=== PATIENT | female | born 1935 | race Caucasian/White ===

== ENCOUNTER 2024-10-13 13:03 | Emergency (ER) | payer MEDICARE, SELFPAY ==
[2024-10-13 13:06] VITALS: BP 177/85
--- NOTE | 2024-10-13 13:34 | ED.CVA ---
History of Present Illness
<Lucio Jaimes MD, Resident - Last Filed: 10/13/24 16:25>
General
Chief Complaint: CVA/TIA Symptoms
Source: patient and family
Time Seen by Provider: 10/13/24 13:18
Onset of Stroke Symptoms
Onset of symptoms known: Yes
Date of onset of symptoms: 10/13/24
Time of onset of symptoms: 12:00
Time pt last seen normal is known: Yes
Date last time pt seen normal: 10/13/24
Time last time pt seen normal: 11:55
History of Present Illness
History of Present Illness:
88 year old female comes to the ED today with slowing/slurring of speech and dragging of feet that her family noticed earlier this morning around 1.5 hours ago. Patient is here with her daughter who saw these changes in the patient this morning.
These symptoms have since resolved and patient does not have any sensory/motor deficits at this time. She states that she has had increased urinary frequency so went to an ED while in [place] on 10/09. She was told that she did not have a UTI
and was prescribed oxybutynin which she took one pill last night and this morning at 10am. Her symptoms resolved fairly quickly and she has not had any motor or sensory deficiencies.
Past History
<Lucio Jaimes MD, Resident - Last Filed: 10/13/24 16:25>
Past History
ED Past Medical History: Other and Other (Parkinson's)
ED Past Surgical History: Orthopedic (Bilateral Knee Replacement)
Review of Systems
<Lucio Jaimes MD, Resident - Last Filed: 10/13/24 16:25>
Review of Systems
Allergies reviewed?: Yes
Other source history: family
Constitutional: Reports no symptoms
EENT: Reports no symptoms
Respiratory: Reports no symptoms
Cardiac: Reports no symptoms
ABD/GI: Reports no symptoms
: Reports frequency
Musculoskeletal: Reports no symptoms
Skin: Reports no symptoms
Neurological: Reports no symptoms
Endocrine: Reports no symptoms
Hematologic/Lymphatic: Reports no symptoms
Psychiatric: Reports no symptoms
Phy Exam
<Lucio Jaimes MD, Resident - Last Filed: 10/13/24 16:25>
General Physical Exam
General Presentation: well appearing and no apparent distress
General age: appears stated age
General Skin: warm and dry
General Habitus: elderly
General Mental: alert
Cardiovascular Exam
Cardiovascular Exam: regular rate/rhythm, no edema and no murmur
Pulmonary Exam
Pulmonary Exam: lungs clear, no respiratory distress, no rales, no crackles, no rhonchi, no wheezing and no cough
Gastrointestinal Exam
Gastrointestinal Exam: non tender, soft and non distended
Neurological Exam
Neurological Exam: alert, oriented x3, CN II-XII intact, no motor deficits, normal reflexs and speech normal
NIH Stroke Score
Level of Consciousness: 0 - Alert
LOC questions: 0-Answers both correctly
LOC Commands: 0-Performs both correctly
Best Gaze: 0-Normal
Visual Chapa: 0=Normal, no visual loss
Facial palsy: 0=Normal, symmetrical
Motor - Right Arm: 0=No drift 10 seconds
Motor - Left Arm: 0=No drift 10 seconds
Motor - Right Le-No drift 5 seconds
Motor - Left Le-No drift 5 seconds
Limb Ataxia: 0-Absent
Sensation: 0-Normal
Best Language: 0-No aphasia
Dysarthria: 0-Normal
Extinction and Inattention: 0-No abnormality
Total Score:: 0
Musculoskeletal Exam
Musculoskeletal Exam: full ROM
<Geoff Bal, DO - Last Filed: 10/13/24 17:38>
NIH Stroke Score
Total Score:: 0
Course
<Lucio Jamies MD, Resident - Last Filed: 10/13/24 16:25>
Orders/Labs/Results
Orders:
Orders
10/13/24 13:11
CT Head W/o Iv Contrast Urgent
Comment:
Reason For Exam: tia/cva symptoms
10/13/24 14:01
Cardiac Monitoring- Treatment ONCE
Vital Signs- Treatment ONCE
Frequency: Once
Pulse Ox/cont/shift [RESP] Stat
Quantity: 1
10/13/24 15:12
Complete Blood Count/With Diff Urgent
Comprehensive Metabolic Panel Urgent
Urinalysis Reflex To Culture Urgent
Date Specimen was Collected: 10/13/24
Time Specimen was Collected: 15:11
10/13/24 15:31
Carbidopa/Levodopa [Sinemet 25-100] 1 tablet PO NOW STA
10/13/24 17:36
Metoprolol Xl [Toprol Xl] 25 mg PO NOW STA
Abnormal Lab Results
10/13/24
15:12
WBC 4.4 L 10^3/uL
(4.8-10.8)
RBC 3.62 L 10^6/uL
(4.20-5.40)
Hgb 11.7 L g/dL
(12.0-16.0)
Hct 35.6 L %
(37.0-47.0)
MCH 32.3 H pg
(27.0-31.0)
MCHC 32.9 L g/dL
(33.0-37.0)
RDW 14.7 H %
(11.5-14.5)
Absolute Lymphs (auto) 1.1 L 10^3/uL
(1.2-3.4)
Monocytes % 9.7 H %
(1.7-9.3)
Creatinine 0.5 L mg/dL
(0.6-1.0)
Urine Ketones 1+ A
(Negative)
10/13/24 15:12
10/13/24 15:12
Vital Signs
Initial and Last Documented VS:
Initial Vital Signs
Temp Pulse Resp BP Pulse Ox
97.6 F 62 15 177/85 99
10/13/24 13:06 10/13/24 13:06 10/13/24 13:06 10/13/24 13:06 10/13/24 13:06
Last Documented Vital Signs
Temp Pulse Resp BP Pulse Ox
97.6 F 75 19 192/79 96
10/13/24 13:06 10/13/24 17:30 10/13/24 17:30 10/13/24 17:00 10/13/24 17:30
<Geoff Bal, DO - Last Filed: 10/13/24 17:38>
Orders/Labs/Results
Orders:
Orders
10/13/24 13:11
CT Head W/o Iv Contrast Urgent
Comment:
Reason For Exam: tia/cva symptoms
10/13/24 14:01
Cardiac Monitoring- Treatment ONCE
Vital Signs- Treatment ONCE
Frequency: Once
Pulse Ox/cont/shift [RESP] Stat
Quantity: 1
10/13/24 15:12
Complete Blood Count/With Diff Urgent
Comprehensive Metabolic Panel Urgent
Urinalysis Reflex To Culture Urgent
Date Specimen was Collected: 10/13/24
Time Specimen was Collected: 15:11
10/13/24 15:31
Carbidopa/Levodopa [Sinemet 25-100] 1 tablet PO NOW STA
10/13/24 17:36
Metoprolol Xl [Toprol Xl] 25 mg PO NOW STA
Abnormal Lab Results
10/13/24
15:12
WBC 4.4 L 10^3/uL
(4.8-10.8)
RBC 3.62 L 10^6/uL
(4.20-5.40)
Hgb 11.7 L g/dL
(12.0-16.0)
Hct 35.6 L %
(37.0-47.0)
MCH 32.3 H pg
(27.0-31.0)
MCHC 32.9 L g/dL
(33.0-37.0)
RDW 14.7 H %
(11.5-14.5)
Absolute Lymphs (auto) 1.1 L 10^3/uL
(1.2-3.4)
Monocytes % 9.7 H %
(1.7-9.3)
Creatinine 0.5 L mg/dL
(0.6-1.0)
Urine Ketones 1+ A
(Negative)
10/13/24 15:12
10/13/24 15:12
Vital Signs
Initial and Last Documented VS:
Initial Vital Signs
Temp Pulse Resp BP Pulse Ox
97.6 F 62 15 177/85 99
10/13/24 13:06 10/13/24 13:06 10/13/24 13:06 10/13/24 13:06 10/13/24 13:06
Last Documented Vital Signs
Temp Pulse Resp BP Pulse Ox
97.6 F 75 19 192/79 96
10/13/24 13:06 10/13/24 17:30 10/13/24 17:30 10/13/24 17:00 10/13/24 17:30
<Lucio Jaimes MD, Resident - Last Filed: 10/13/24 16:25>
MDM/Problems Addressed
Differential Diagnosis Includes:
Medication Side Effect, UTI, TIA, NPH
MDM/Problems Addressed:
88 year old female comes to the ED due to possible slurring of speech and left foot dragging that was witnessed by her daughter around an hour and a half ago.
CT Head does not show any signs of active bleed but does show diffuse cortical atrophy
Stroke not very likely at this time, clinically improved
Due to neurological symptoms being seen shortly after starting the Oxybutynin, it may be a side effect from the medication
Will check electrolytes for any visible changes and UA/CBC for possible UTI as well
Discussed with Dr. Velasco, does not believe it is related to NPH at this time. He recommends follow up with outpatient Neurology
UA, Electrolytes and CBC unremarkable
Blood pressure increased at this visit, patient needs to follow up with PCP for further management of BP. Says she has been on HTN meds in the past but stopped taking them as her BP had normalized
Chronic conditions affecting care: Neurological disorder
<Lucio Jaimes MD, Resident - Last Filed: 10/13/24 16:25>
*Pulse Oximetry
SaO2: 99
Oxygen Mode of Delivery: Room air
Patient hypoxic: no
*Critical Care Note
Total Time (30-74mins, 75-104mins- exclusive of procedures): Not Applicable
ED Attending Note
<Lucio Jaimes MD, Resident - Last Filed: 10/13/24 16:25>
-
Portions of this chart may have been created with voice recognition software.� Occasional wrong word or��sound alike� substitutions may have occurred due to the inherent limitations of voice recognition software.
<Geoff Bal, DO - Last Filed: 10/13/24 17:38>
ED Attending Note
Patient seen and examined by attending physician: Yes
I performed a history and physical exam of patient and discussed management with resident, I reviewed resident's note and agree with documented findings and plan of care.: Yes
ED Attending Note:
I reviewed and agree with history and treatment plan by Lucio Jaimes MD. My exam revealed
Physical Exam
General: no apparent distress, not acutely ill
Neck: supple. no meningeal signs. normal posterior pharynx
Heart: s1/s2 regular rate and rhythm, no murmur. equal radial
pulses.
HEENT: Pupils equal round reactive to light, EOMI
Lungs: no acute respiratory distress. clear bilaterally
Abdomen: normal bowel sounds. not tender. no CVAT
Neuro: alert and oriented. no focal neurological deficits cranial nerves II through XII intact
Skin: no rash
Psychiatric: well kept. interactive and cooperative
Extremities: no edema. no calf tenderness. negative homans. good distal pulses
Blood pressure mildly elevated, will treat with Lopressor [address] Velasco who recommends outpatient neurologic follow-up patient will stop oxybutynin as this is suspected to of cause of her symptoms. Doubt CVA.
Discharge Plan
Departure
Patient Disposition: Home (Routine Discharge)
Date of Disposition: 10/13/24
Time of Disposition: 17:34
Patient with high blood pressure during this ER visit?: Yes
Condition: Good
Discharge Problem:
Acute alteration in mental status, Hypertension
Instructions: High blood pressure in adults, Mild cognitive impairment, BLOOD PRESSURE
Prescriptions:
New
metoprolol succinate [Toprol XL] 25 mg tablet extended release 24 hr
25 mg PO DAILY Qty: 30 0RF
No Action
Rytary 23.75-95 mg capsule, extended release
3 cap PO TID
Referrals:
NONE,* [Family Provider, Internal Medicine]
Activity Restrictions/Additional Instructions:
As discussed, follow up with your PCP in [place] regarding your increased blood pressure.
Follow up with Urology regarding increased urination. Please stop taking the Oxybutynin as it may have been causing you to have altered mental status.
As discussed, follow up with your Neurologist and let them know regarding this acute event. They may want to consider doing further imaging at this time.
Interventions
Interventions:
*Risk Screen - Suicide Last Done: 10/13/24 13:06
*General Assessment Last Done: 10/13/24 13:06
*Neglect/Abuse Screening Last Done: 10/13/24 13:06
*ED- Fall Risk Assessment Last Done: 10/13/24 14:24
*ED COVID-19 Vaccine History Last Done: 10/13/24 14:24
ED- Pulmonary Assessment Last Done: 10/13/24 15:20
ED- Neurological Assessment Last Done: 10/13/24 15:20
ED- Cardiac Assessment Last Done: 10/13/24 15:20
Discharge Date and Time
Print Language: FINNISH
[2024-10-13 14:01] VITALS: BP 154/100
[2024-10-13 14:17] VITALS: BP 198/95
[2024-10-13 14:24] VITALS: BMI 22.3
--- NOTE | 2024-10-13 14:36 | EDRN ---
Pt is BR at this time.
[2024-10-13 15:10] VITALS: BP 215/99
--- NOTE | 2024-10-13 15:23 | EDRN ---
Dr. Jaimes in room w /pt at this time.
[2024-10-13 15:25] LABS: Hematocrit 35.6 % (37.0-47.0); Hemoglobin 11.7 g/dL (12.0-16.0); Mean Corp Hgb Conc. 32.9 g/dL (33.0-37.0); Mean Corpuscular Volume 98.3 fL (81.0-99.0); Nucleated Red Blood Cells % 0 %; Platelet Count 190 10^3/uL (130-400); Red Cell Dist. Width 14.7 % (11.5-14.5)
[2024-10-13 15:34] LABS: Urine Character Clear (Clear)
[2024-10-13 15:36] LABS: ALT (SGPT) < 10 U/L (0-35); AST (SGOT) 22 U/L (14-36); Albumin 4.1 g/dl (3.5-5.0); Alkaline Phosphatase 101 U/L (38-126); Blood Urea Nitrogen 16 mg/dl (7-17); Calcium 8.7 mg/dl (8.4-10.2); Carbon Dioxide 28 mmol/L (22-30); Chloride 105 mmol/L (98-107); Estimated Creatinine Clearance 56 ml/min; Glucose 94 mg/dl (70-99); Potassium 4.0 mmol/L (3.5-5.1); Sodium 137 mmol/L (135-145); Total Protein 6.5 g/dl (6.3-8.2); eGFR > 60.00
[2024-10-13 16:00] VITALS: BP 222/82
--- NOTE | 2024-10-13 16:05 | EDRN ---
Pt placed on purewyck as voiding non-stop.
[2024-10-13 17:00] VITALS: BP 192/79
[2024-10-13] MEDS: TOPROL XL 25 MG PO (18:04)
== END 2024-10-13 18:00 | disposition home or self-care (01) ==
LOC: EMR 13:03
PROVIDERS: EMERGENCY PHYSICIAN Emergency Medicine
DX: R41.82 Altered mental status, unspecified (principal); R47.81 Slurred speech; R26.89 Other abnormalities of gait and mobility; I10 Essential (primary) hypertension; G20.A1 Parkinson's disease without dyskinesia, without mention of fluctuations; Z96.653 Presence of artificial knee joint, bilateral; Z88.5 Allergy status to narcotic agent
CPT/HCPCS: 99285; 70450; 80053; 81003; 85025